=== PATIENT | male | born 1955 | race Asian ===

== ENCOUNTER 2019-07-21 13:05 | Emergency (ER) | payer MEDICAID ==
[~2019-07-21] VITALS: Ht 165.1 cm; Wt 61.4 kg
[2019-07-21] MEDS ORDERED: POLY510P31 PO (13:17)
[2019-07-21] MEDS ORDERED: BENZ0.5T44 PO (13:17)
[2019-07-21] MEDS ORDERED: OLAN5TAB27 PO (13:17)
[2019-07-21] MEDS ORDERED: FOLI1 PO (13:17)
[2019-07-21] MEDS ORDERED: MIRT15TA6 PO (13:17)
[2019-07-21] MEDS ORDERED: SODIUM CHLORIDE 0.9% 1,000 ML IV ONE (14:21)
[2019-07-21 14:40] LABS: BASOPHILS % (AUTO) 1.3 % (0.0-2.0); EOSINOPHILS % (AUTO) 4.4 % (1.0-6.0); HEMATOCRIT 45.3 % (41-53); HEMOGLOBIN 15.2 g/dL (13.5-17.5); LYMPHOCYTES # (AUTO) 1.6 K/uL (1.0-4.8); LYMPHOCYTES % (AUTO) 29.3 % (22.0-44.0); MEAN CORPUSCULAR HEMOGLOBIN 31.5 pg (26.0-34.0); MEAN CORPUSCULAR HGB CONC 33.6 G/dL (31.0-37.0); MEAN CORPUSCULAR VOLUME 94 fL (80-100); MONOCYTES # (AUTO) 0.2 K/uL (0.1-1.0); MONOCYTES % (AUTO) 4.6 % (2.0-9.0); NEUTROPHILS # (AUTO) 3.3 K/uL (1.8-7.7); NEUTROPHILS % (AUTO) 60.4 % (40.0-70.0); PLATELET COUNT (AUTO) 157 K/uL (150-450); RED BLOOD CELL COUNT(AUTO) 4.84 MIL/uL (4.50-5.90); RED CELL DISTRIBUTION WIDTH 13.3 % (11.5-14.5)
[2019-07-21] MEDS ORDERED: BARIUM SULFATE 0.1% SUSPENSION 450 ML BOTTLE PO ONE (14:45)
[2019-07-21 14:48] LABS: ANION GAP 7 mmol/L (8-16); CALCIUM, TOTAL 8.9 mg/dL (8.8-10.5); CARBON DIOXIDE 32 mmol/L (22-29); CHLORIDE 107 mmol/L (98-107); CREATININE 0.85 mg/dL (0.60-1.30); GLOMERULAR FILTR. RATE CALC > 60 mL/min (>60); GLUCOSE,RANDOM 102 mg/dL (70-110); POTASSIUM 3.9 mmol/L (3.5-5.1); SODIUM SERUM 146 mmol/L (136-145); UREA NITROGEN, BLOOD 15 mg/dL (7-18)
[2019-07-21 14:54] LABS: ALANINE AMINOTRANSFERASE 83 U/L (12-78); ALBUMIN 4.1 g/dL (3.4-5.0); ALKALINE PHOSPHATASE 76 U/L (46-116); ASPARTATE AMINOTRANSFERASE 41 U/L (15-37); BILIRUBIN,TOTAL 0.4 mg/dL (0.1-1.0); LIPASE 85 U/L (73-393); TOTAL PROTEIN, SERUM 7.6 g/dL (6.4-8.2)
[2019-07-21] MEDS ORDERED: SODIUM CHLORIDE 0.9% 100 ML ONE (15:18)
[2019-07-21] MEDS ORDERED: IOVERSOL 350 MG/ML 100 ML VIAL ONE (15:18)
[2019-07-21 18:10] VITALS: BP 134/93
== END 2019-07-21 18:57 | disposition home or self-care (01) ==
LOC: EMS 13:07
DX: K59.00 Constipation, unspecified (principal); F20.9 Schizophrenia, unspecified; Z79.899 Other long term (current) drug therapy
CPT/HCPCS: 36415; 74177; 80053; 83690; 85025; 99285; J7030; J7050; Q9967

== ENCOUNTER 2025-05-02 09:03 | Emergency (ER) | payer MEDICARE, MEDICAID ==
[~2025-05-02] VITALS: Ht 165.1 cm; Wt 54.5 kg
[~2025-05-02 09:03] MED LIST: BENZ0.5T52 PO; FOLI-130 PO; MIRT-92 PO; OLAN5TAB77 PO; POLY510P31 PO
[2025-05-02 09:11] VITALS: TEMP 98.4
[2025-05-02] MEDS ORDERED: LORA10TA7 PO (09:14)
[2025-05-02] MEDS ORDERED: ATOR20TA PO (09:14)
[2025-05-02] MEDS: FAMOTIDINE 20 MG/2 ML VIAL IVP ONE (09:29)
[2025-05-02] MEDS: KETOROLAC TROMETHAMINE 30 MG/ML VIAL IVP ONE (09:29)
[2025-05-02] MEDS: ONDANSETRON HCL 4 MG/2 ML VIAL IVP ONE (09:29)
[2025-05-02] MEDS: SODIUM CHLORIDE 0.9% 1,000 ML IV ONE (09:29)
[2025-05-02 09:32] LABS: COVID AG,FIA SOURCE NASAL SWAB
[2025-05-02 09:33] VITALS: BP 133/81; PULSE 68; RESP 16; O2SAT 97
[2025-05-02 09:37] LABS: PLATELET COUNT (AUTO) 178 K/uL (150-450); RED BLOOD CELL COUNT(AUTO) 5.05 MIL/uL (4.50-5.90); RED CELL DISTRIBUTION WIDTH 13.6 % (11.5-14.5); WHITE BLOOD COUNT (AUTO) 6.2 K/uL (4.5-11.0)
[2025-05-02] MEDS: ACETAMINOPHEN 500 MG TABLET PO ONE (09:42)
[2025-05-02 09:53] LABS: CALCIUM, TOTAL 8.8 mg/dL (8.8-10.5); CREATININE 0.69 mg/dL (0.60-1.30); GLOMERULAR FILTR. RATE CALC > 60 mL/min (>60); GLUCOSE,RANDOM 103 mg/dL (70-110); SODIUM SERUM 135 mmol/L (136-145); UREA NITROGEN, BLOOD 10 mg/dL (7-18)
[2025-05-02 10:02] LABS: SARS-COV2 (COVID) ANTIGEN,FIA Negative (Negative)
[2025-05-02 10:03] LABS: INFLUENZA TYPE A NEGATIVE FOR TYPE A (NEGATIVE); INFLUENZA TYPE B NEGATIVE FOR TYPE B (NEGATIVE)
[2025-05-02 10:04] LABS: ASPARTATE AMINOTRANSFERASE 24.0 U/L (15-37); TOTAL PROTEIN, SERUM 7.9 g/dL (6.4-8.2)
[2025-05-02] MEDS ORDERED: SODIUM CHLORIDE 0.9% 100 ML ONE (10:08)
[2025-05-02] MEDS ORDERED: IOHEXOL 350 MG/ML 100 ML VIAL ONE (10:08)
[2025-05-02] MEDS ORDERED: ONDA-104 PO (10:53)
== END 2025-05-02 11:17 | disposition home or self-care (01) ==
LOC: EMS 09:03
DX: R11.2 Nausea with vomiting, unspecified (principal); R10.33 Periumbilical pain; E78.00 Pure hypercholesterolemia, unspecified; F20.9 Schizophrenia, unspecified; F32.A Depression, unspecified; Z79.899 Other long term (current) drug therapy; Z20.822 Contact with and (suspected) exposure to COVID-19
CPT/HCPCS: 99285; 74177; 96374; 96375; 87426; 80048; 80076; 83690; 85025; 87804; 36415; J1885; Q9967; J3490; J2405; J7030; J7050